=== PATIENT | male | born 1935 | race Asian ===

== ENCOUNTER 2021-09-23 16:52 | Inpatient (IN) | payer MEDICARE, OTHER ==
[~2021-09-23] VITALS: Ht 160 cm; Wt 59.0 kg
[2021-09-23] MEDS ORDERED: MAGNESIUM HYDROXIDE 30 ML LIQUID UDC PO PRN (17:45)
[2021-09-23] MEDS ORDERED: MORPHINE SULFATE 2 MG/1 ML DISP.SYRIN IV PRN (17:45)
[2021-09-23] MEDS ORDERED: LABETALOL HCL 100 MG/20 ML VIAL IV PRN (17:45)
[2021-09-23] MEDS ORDERED: DEXTROSE 50% 50 ML DISP.SYRIN IV PRN (17:45)
[2021-09-23] MEDS ORDERED: ONDANSETRON 4 MG/2 ML VIAL IV PRN (17:45)
[2021-09-23] MEDS ORDERED: ACETAMINOPHEN 325 MG TABLET PO PRN (17:45)
[2021-09-23] MEDS: AMLODIPINE 5 MG TABLET PO SCH (17:45)
[2021-09-23] MEDS ORDERED: hydrALAZINE HCL 20 MG/1 ML VIAL IV PRN (17:45)
[2021-09-23] MEDS ORDERED: LISI2.5T14 PO (18:01)
[2021-09-23] MEDS ORDERED: METF-440 PO (18:01)
[2021-09-23] MEDS ORDERED: ASPI81TA31 PO (18:01)
[2021-09-23] MEDS ORDERED: ATEN25TA PO (18:01)
[2021-09-23] MEDS ORDERED: LATA2.5D15 EACHEYE (18:01)
[2021-09-23] MEDS ORDERED: TERB250T53 PO (18:01)
[2021-09-23] MEDS ORDERED: AMLO10TA59 PO (18:01)
[2021-09-23] MEDS ORDERED: ATOR10TA PO (18:01)
[2021-09-23 18:12] LABS: HEMATOCRIT 42.4 % (36.7-47.1); MEAN CORPUSCULAR HEMOGLOBIN 31.4 uug (23.8-33.4); MEAN CORPUSCULAR VOLUME 91.5 fL (73.0-96.2); PLATELET COUNT (AUTO) 199 K/uL (152-348)
[2021-09-23 18:18] LABS: CARBON DIOXIDE 31 mmol/L (21-32); CHLORIDE 99 mmol/L (98-107); CREATININE 1.3 mg/dL (0.6-1.3); GLUCOSE 128 mg/dL (74-106); POTASSIUM 4.2 mmol/L (3.5-5.1); UREA NITROGEN, BLOOD 13 mg/dL (7-18)
[2021-09-23 18:19] LABS: ETHANOL < 3 MG/DL (0-0)
[2021-09-23 18:23] LABS: ALANINE AMINOTRANSFERASE 15 U/L (16-63); ALKALINE PHOSPHATASE 79 U/L (50-136); ASPARTATE AMINOTRANSFERASE 16 U/L (15-37); BILIRUBIN,DIRECT 0.2 mg/dL (0.0-0.2); BILIRUBIN,TOTAL 0.6 mg/dL (0.2-1.0); TOTAL PROTEIN, SERUM 7.4 g/dL (6.4-8.2)
[2021-09-23 18:24] LABS: ACETAMINOPHEN < 2.0 ug/mL (10-30)
[2021-09-23 18:35] LABS: THYROID STIMULATING HORMONE 1.157 mIU/mL (0.358-3.740)
[2021-09-23] MEDS: LISINOPRIL 10 MG TABLET PO SCH (18:44)
--- NOTE | 2021-09-23 19:20 | NUR ---
[facility]ie[facility] thorough [facility] using SBAR method. Pt is doing fine, VSS, PE WNL, pt has good color and appearance. Rf Design Engineer strength equal bilat, PERRLA, neuro intact, aaox3. Son at bedside. Pt SBP elevated at 175/89, 97% RA, 75bpm SR without ectopy. Pt is asymptomatic. Denies any pain, sob, dizziness, N/v or discomfort. No s/sx of distress present.
--- NOTE | 2021-09-23 19:30 | NUR ---
Nothing is pending on pts chart. Pt is in holding pattern waiting on insurance approval for admission.
--- NOTE | 2021-09-23 19:50 | NUR ---
Pt's rapid covid came back neg. Admitting checking on insurance status.
--- NOTE | 2021-09-23 21:15 | NUR ---
Pt recieved room assignment. Pt is admitted to Rm 305.
[2021-09-23] MEDS: LATANOPROST OPHT DROP 2.5 ML BOTTLE EACHEYE SCH (21:37)
[2021-09-23] MEDS: ATORVASTATIN 10 MG TABLET PO SCH (21:37)
[2021-09-23] MEDS ORDERED: DOCUSATE SODIUM 100 MG CAPSULE PO ONE (21:39)
[2021-09-23] MEDS ORDERED: TAMSULOSIN HCL 0.4 MG CAP.SR.24H ONE (21:39)
[2021-09-23 21:40] VITALS: BP 184/71
[2021-09-23] MEDS: BLOOD SUGAR DIAGNOSTIC 1 EACH STRIP VI SCH (21:44)
[2021-09-23] MEDS ORDERED: ATENOLOL 25 MG TABLET PO ONE (21:47)
--- NOTE | 2021-09-23 22:10 | NUR ---
ADMITTED PATIENT ON THE TELE FLOOR UNDER THE CARE OF DR. ROBERTSON, PATIENT ALERT BUT SPEAK CANTONESE BUT UNDERSTAND SWISS, SON AT BEDSIDE ABLE TO HELP WITH THE ADMISSION QUESTIONS. PATIENT HAD ELEVATED BP WILL MEDICATE ORDER, USES URINAL FOR BLADDER ELIMINATION, CONT TO MONITOR.
--- NOTE | 2021-09-23 22:10 | NUR ---
Thorough Report given to teleRN using SBAR method. Pt is stable with good VS and appearance. AAOx3. Son accompaning pt to room. EDMD ordered atenolol for high SBP, however pt was already rolled over so he did not show up in the pixis in the ED and I was unable to give him is dose of BP med. This was relayed to the accepting telegraph editor. floor nurse gave green light to bring up the pt. Pt was loaded up and getting ready for transport upstairs.
--- NOTE | 2021-09-23 22:20 | NUR ---
Pt tranfered upstairs without incident and without difficulty, son with pt the entire time, and will be asisting teletype adjuster by providing info for pt intake. Pt ambulated to hospital bed with steady gait, stopping by the bathroom to void. GOLD STAMPER dressed pt in gown and obtaining freshg VS. No s/sx of distress present.
--- NOTE | 2021-09-23 22:43 | NUR ---
[place] was never incerted, pt was no issues urinating and was unneccessary.
[2021-09-24] VITALS: BP 172/76
[2021-09-24 04:06] VITALS: BP 168/71
--- NOTE | 2021-09-24 04:08 | NUR ---
Received report from RN. Patient sleeping soundly. On room air saturating 96%. BP 108/54, pulse 73, RR 18, temperature 98.5. No signs or symptoms of pain or distress. Will continue to monitor Addendum: 09/25/21 at 0422 by ALVINA ECHEVERRIA RN Wrong time input, supposed to be [id number] 09/24/21
[2021-09-24] MEDS: BLOOD SUGAR DIAGNOSTIC 1 EACH STRIP VI SCH ×4 (06:39→20:41)
--- NOTE | 2021-09-24 06:44 | NUR ---
PATIENT ALERT SPEAK SOMALI, NO SOB NO CHEST PAIN, TELE MONITOR SINUS RHTYHM, PATIENT HAS NO COMPLAIN OF PAIN, VOIDING FREELY, ASSISTED TO TOILET, PATIENT BP STILL ELEVATED, PATIENT TEMP 99, LIKE JACKETS AND BLANKETS ON PATIENT, WILL CONT TO MONITOR.
[2021-09-24 08:25] LABS: HEMATOCRIT 40.3 % (36.7-47.1); MEAN CORPUSCULAR HEMOGLOBIN 31.3 uug (23.8-33.4); MEAN CORPUSCULAR VOLUME 92.1 fL (73.0-96.2); PLATELET COUNT (AUTO) 189 K/uL (152-348)
[2021-09-24] MEDS: AMLODIPINE 5 MG TABLET PO SCH (08:45)
[2021-09-24] MEDS: LISINOPRIL 10 MG TABLET PO SCH (08:45)
[2021-09-24 09:08] LABS: BILIRUBIN,TOTAL 0.8 mg/dL (0.2-1.0); PHOSPHOROUS 2.7 mg/dL (2.5-4.9); TOTAL PROTEIN, SERUM 6.6 g/dL (6.4-8.2)
[2021-09-24 11:02] VITALS: BP 140/60
[2021-09-24 15:06] VITALS: BP 114/43
[2021-09-24 20:00] VITALS: BP 108/45
[2021-09-24] MEDS: LATANOPROST OPHT DROP 2.5 ML BOTTLE EACHEYE SCH (20:37)
[2021-09-24] MEDS: ATORVASTATIN 10 MG TABLET PO SCH (20:37)
[2021-09-24] MEDS: INSULIN REGULAR, HUMAN 300 UNIT/3 ML VIAL SQ PRN (20:43)
[2021-09-25 04:11] VITALS: BP 148/77
--- NOTE | 2021-09-25 05:45 | NUR ---
At 0500, BP 168/84, HR 100. gave PRN Trandate Iv for SBP over 160 at 0507. No complaints of pain or dizziness At 0535, BP 148/77, HR 66. No signs and symptoms of distress and pain.
[2021-09-25] MEDS: BLOOD SUGAR DIAGNOSTIC 1 EACH STRIP VI SCH ×2 (06:49→12:21)
--- NOTE | 2021-09-25 07:08 | NUR ---
Patient slept through most of the night. Left forearm IV intact and patent. Patient on room air saturating 96%. No signs of pain and distress. Call light within reach, all needs met. Will endorse to night filler nurse
[2021-09-25] MEDS ORDERED: LISINOPRIL 10 MG TABLET PO SCH (08:15)
[2021-09-25] MEDS: AMLODIPINE 5 MG TABLET PO SCH (08:35)
[2021-09-25] MEDS ORDERED: LISINOPRIL 20 MG TABLET PO SCH (09:00)
[2021-09-25 11:03] VITALS: BP 147/61
[2021-09-25] MEDS ORDERED: LISI20TA30 PO (11:50)
[2021-09-25] MEDS: INSULIN REGULAR, HUMAN 300 UNIT/3 ML VIAL SQ PRN (12:38)
[2021-09-25] MEDS ORDERED: LIDOCAINE 2% (UROJET) 10 ML JELLY MM ONE (13:00)
--- NOTE | 2021-09-25 15:00 | NUR ---
Patient d/c to [facility] in stable condition. Denies pain or SOB. Report given to Samara. Son was made aware and he was able to tell his father over the phone about the placement. Discharge protocol followed. Vital Signs stable. Belonging sent with pt. Safety and comfort measures maintained t/o shift.
[2021-09-25 15:09] VITALS: BP 135/61
== END 2021-09-25 15:50 | DRG 304 ==
LOC: ER 17:05 → TELE3 21:36 → MEDSURG3 09-24 12:20
PROVIDERS: ADMIT Internal Medicine; ATTEND Internal Medicine
DX: I16.0 Hypertensive urgency (principal); G93.41 Metabolic encephalopathy; N17.9 Acute kidney failure, unspecified; R62.7 Adult failure to thrive; E11.9 Type 2 diabetes mellitus without complications; Z79.84 Long term (current) use of oral hypoglycemic drugs; Z79.899 Other long term (current) drug therapy; Z86.73 Personal history of transient ischemic attack (TIA), and cerebral infarction without residual deficits; R53.1 Weakness; K40.20 Bilateral inguinal hernia, without obstruction or gangrene, not specified as recurrent; Z68.23 Body mass index [BMI] 23.0-23.9, adult; Z20.822 Contact with and (suspected) exposure to COVID-19
CPT/HCPCS: 36415; 51702; 70030-TC; 70450; 71045; 83605; 84100; 84443; 85025; 85730; 87040; 93005; 93307; A4663; G0378; G0480; J0360; J1815; J3490; J7030; U0003